=== PATIENT | female | born 1960 | race Caucasian/White ===

== ENCOUNTER 2022-08-25 08:48 | Emergency (ER) | payer BC, OTHER ==
[~2022-08-25] VITALS: Ht 162.6 cm; Wt 54.4 kg
--- NOTE | 2022-08-25 09:17 | ED Respiratory ---
General Chief Complaint: Respiratory Problems Stated Complaint: SOB; TACHY History of Present Illness Date Seen by Provider: Aug 25, 2022 Time Seen by Provider: 09:06 Initial Comments 62-year-old female with PMH of chronic smoker/anxiety/possible COPD officially undiagnosed, is here with complaints of intermittent shortness of breath and wheezing that has been going on for the past 3 weeks and progressively worsening. Patient was given an inhaler by her PCP and reports using it more often than usual. Patient called 911 around 5:45 AM today morning but did not go to the ER. No definite triggers. Patient states that she has associated coughing in the coughing triggers the shortness of breath and chest soreness. Denies fever, chills, diarrhea, abdominal pain, headache, dizziness, palpitations. Allergies and Home Medications Allergies Coded Allergies: No Known Drug Allergies (Unverified , 08/25/22) Patient Home Medication List Home Medication List Reviewed: Yes Review of Systems Review of Systems Constitutional: no symptoms reported EENTM: no symptoms reported Respiratory: cough, short of breath, wheezing Cardiovascular: no symptoms reported Genitourinary: no symptoms reported Musculoskeletal: no symptoms reported Skin: no symptoms reported Psychiatric/Neurological: No Symptoms Reported Hematologic/Lymphatic: No Symptoms Reported Immunological/Allergic: no symptoms reported Past Yrdfkge-Sovaad-Yljfva Hx Patient Social History Tobacco Use?: Yes Tobacco type used: Cigarettes Smoking Status: Current Everyday Smoker Use of E-Cig and/or Vaping dev: No Substance use?: No Alcohol Use?: Yes Alcohol type: Beer Alcohol Frequency: Daily Pt feels they are or have been: No Immunizations Up To Date First/Initial COVID19 Vaccinat: 2020 Second COVID19 Vaccination Mike: 2020 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 oz. kg; BMI Method: General Appearance: WD/WN, no apparent distress HEENT: PERRL/EOMI, normal ENT inspection Neck: full range of motion, supple Respiratory: chest non-tender, no respiratory distress, no accessory muscle use, wheezing (mild intermittent) Cardiovascular: normal peripheral pulses, regular rate, rhythm Gastrointestinal: normal bowel sounds, non tender, soft Neurologic/Psychiatric: no motor/sensory deficits, alert, oriented x 3 Skin: normal color Lymphatic: no adenopathy Progress/Results/Core Measures Suspected Sepsis SIRS Temperature: Pulse: Respiratory Rate: Laboratory Tests 08/25/22 09:08: White Blood Count 13.9H Blood Pressure / Mean: Laboratory Tests 08/25/22 09:08: Creatinine 0.69, INR Comment 1.0, Platelet Count 343, Total Bilirubin 0.3 Results/Orders Lab Results Laboratory Tests Test 08/25/22 09:08 08/25/22 09:30 08/25/22 11:32 Range/Units White Blood Count 13.9 H 4.3-11.0 10^3/uL Red Blood Count 4.54 3.80-5.11 10^6/uL Hemoglobin 15.2 11.5-16.0 g/dL Hematocrit 44 35-52 % Mean Corpuscular Volume 97 80-99 fL Mean Corpuscular Hemoglobin 34 25-34 pg Mean Corpuscular Hemoglobin Concent 35 32-36 g/dL Red Cell Distribution Width 13.0 10.0-14.5 % Platelet Count 343 130-400 10^3/uL Mean Platelet Volume 8.7 L 9.0-12.2 fL Immature Granulocyte % (Auto) 0 % Neutrophils (%) (Auto) 82 H 42-75 % Lymphocytes (%) (Auto) 9 L 12-44 % Monocytes (%) (Auto) 5 0-12 % Eosinophils (%) (Auto) 4 0-10 % Basophils (%) (Auto) 0 0-10 % Neutrophils # (Auto) 11.4 H 1.8-7.8 10^3/uL Lymphocytes # (Auto) 1.3 1.0-4.0 10^3/uL Monocytes # (Auto) 0.7 0.0-1.0 10^3/uL Eosinophils # (Auto) 0.5 H 0.0-0.3 10^3/uL Basophils # (Auto) 0.0 0.0-0.1 10^3/uL Immature Granulocyte # (Auto) 0.1 0.0-0.1 10^3/uL Prothrombin Time 13.2 12.2-14.7 SEC INR Comment 1.0 0.8-1.4 Activated Partial Thromboplast Time 32 24-35 SEC D-Dimer 0.56 H 0.00-0.49 UG/ML Urine Color YELLOW Urine Clarity CLEAR Urine pH 7.0 5-9 Urine Specific [place] 1.015 L 1.016-1.022 Urine Protein NEGATIVE NEGATIVE Urine Glucose (UA) NEGATIVE NEGATIVE Urine Ketones NEGATIVE NEGATIVE Urine Nitrite NEGATIVE NEGATIVE Urine Bilirubin NEGATIVE NEGATIVE Urine Urobilinogen 0.2 < = 1.0 MG/DL Urine Leukocyte Esterase NEGATIVE NEGATIVE Urine RBC (Auto) 1+ H NEGATIVE Urine RBC 2-5 H /HPF Urine WBC 5-10 H /HPF Urine Squamous Epithelial Cells 2-5 /HPF Urine Crystals NONE /LPF Urine Bacteria FEW H /HPF Urine Casts NONE /LPF Urine Mucus NEGATIVE /LPF Urine Culture Indicated YES Sodium Level 134 L 135-145 MMOL/L Potassium Level 4.0 3.6-5.0 MMOL/L Chloride Level 96 L 98-107 MMOL/L Carbon Dioxide Level 27 21-32 MMOL/L Anion Gap 11 5-14 MMOL/L Blood Urea Nitrogen 7 7-18 MG/DL Creatinine 0.69 0.60-1.30 MG/DL Estimat Glomerular Filtration Rate 99 BUN/Creatinine Ratio 10 Glucose Level 125 H 70-105 MG/DL Calcium Level 9.4 8.5-10.1 MG/DL Corrected Calcium 9.3 8.5-10.1 MG/DL Magnesium Level 2.2 1.6-2.4 MG/DL Total Bilirubin 0.3 0.1-1.0 MG/DL Aspartate Amino Transf (AST/SGOT) 14 5-34 U/L Alanine Aminotransferase (ALT/SGPT) 12 0-55 U/L Alkaline Phosphatase 90 40-136 U/L Troponin I < 0.30 < 0.30 <0.30 NG/ML Pro-B-Type Natriuretic Peptide 135.0 H <125.0 PG/ML Total Protein 6.9 6.4-8.2 GM/DL Albumin 4.1 3.2-4.5 GM/DL Urine Opiates Screen NEGATIVE NEGATIVE Urine Oxycodone Screen NEGATIVE NEGATIVE Urine Methadone Screen NEGATIVE NEGATIVE Urine Propoxyphene Screen NEGATIVE NEGATIVE Urine Barbiturates Screen NEGATIVE NEGATIVE Ur Tricyclic Antidepressants Screen NEGATIVE NEGATIVE Urine Phencyclidine Screen NEGATIVE NEGATIVE Urine Amphetamines Screen NEGATIVE NEGATIVE Urine Methamphetamines Screen NEGATIVE NEGATIVE Urine Benzodiazepines Screen NEGATIVE NEGATIVE Urine Cocaine Screen NEGATIVE NEGATIVE Urine Cannabinoids Screen NEGATIVE NEGATIVE Serum Alcohol < 10 <10 MG/DL Influenza Type A (RT-PCR) Not Detected Not Detecte Influenza Type B (RT-PCR) Not Detected Not Detecte SARS-CoV-2 RNA (RT-PCR) Not Detected Not Detecte My Orders Orders - JOVANI SALCEDO MD Chest 1 View Ap/Pa Only (08/25/22 09:17) Alcohol (08/25/22 09:18) Cbc With Automated Diff (08/25/22 09:18) Comprehensive Metabolic Panel (08/25/22 09:18) Fibrin Degradation Products (08/25/22 09:18) Drug Screen Stat (Urine) (08/25/22 09:18) Magnesium (08/25/22 09:18) Protime With Inr (08/25/22 09:18) Partial Thromboplastin Time (08/25/22 09:18) Ua Culture If Indicated (08/25/22 09:18) Probnp Fs (08/25/22 09:18) Troponin I Fs (08/25/22 09:18) Albuterol/Ipra Inhalation Soln (Duoneb I (08/25/22 09:30) Methylprednisolone Sod Succ (Solu-Medrol (08/25/22 09:27) Svn Small Volume Nebulizer (08/25/22 09:27) Covid 19 Inhouse Test (08/25/22 09:28) Influenza A And B By Pcr (08/25/22 09:28) Aspirin Chewable Tablet (Baby Aspirin Ch (08/25/22 09:30) Urine Culture (08/25/22 09:08) Ct Angio Chest W (08/25/22 09:54) Iohexol Injection (Omnipaque 350 Mg/Ml 1 (08/25/22 10:00) Received Contrast (Hold Metformin- Contr (08/25/22 10:00) Ns (Ivpb) (Sodium Chloride 0.9% Ivpb Bag (08/25/22 10:00) Troponin I Fs (08/25/22 11:00) Ekg Tracing (08/25/22 11:00) Medications Given in ED Current Medications Medications Dose Ordered Sig/Bibi Route Start Time Stop Time Status Last Admin Dose Admin Albuterol/ Ipratropium 3 ml ONCE ONCE INH 08/25/22 09:30 08/25/22 09:31 DC 08/25/22 09:34 3 ML Aspirin 324 mg ONCE ONCE PO 08/25/22 09:30 08/25/22 09:31 DC 08/25/22 09:35 324 MG Iohexol 100 ml ONCE ONCE IV 08/25/22 10:00 08/25/22 10:01 DC 08/25/22 10:14 80 ML Sodium Chloride 100 ml ONCE ONCE IV 08/25/22 10:00 08/25/22 10:01 DC 08/25/22 10:14 100 ML Vital Signs/I&O 08/25/22 08/25/22 08:56 08:56 Temp 36.7 Pulse 104 Resp 17 B/P (MAP) 128/79 (95) O2 Delivery Room Air Room Air Capillary Refill : Progress Note : Progress Note 1. COPD EXACERBATION - CXR: COPD like picture - CBC/CMP: unremarkable except for WBC of 13 , but pt is currently taking antibitoics for an UTI ( Nitrofurantoin) - EKG/ Troponin x2: non-icschemic - UA/ UDS unremarkable - ASA 324mg STAT/ Duo Neb/ Solumedrol 125mg iv -Smoking cessation advised. Patient is trying to cut down - Pt has an albuterol inhaler at home, and advised to use it as instructed by her PCP. Prescription for Atrovent given today and a 5-day course of prednisone. -Advised to follow-up with PCP within the next 7 days, and will need pulmonology clinic appointment for lung function testing. -The patient was seen in the ED, and treated appropriately to presentation at a specific point in time. Patient is informed that there is a possibility that disease and illness can evolve and change in acuity rapidly or slowly after patient is discharged from the ER. Precautionary advice given to the patient for immediate return to ER if symptoms worsen or do not resolve, and to seek emergency care sooner rather than later. Pt also advised on the importance of PCP follow up and compliance with management and follow up plan with PCP and/or specialist, as this is part of the management plan. Pt verbally expressed understanding. ECG Initial ECG Impression Date: Aug 25, 2022 Initial ECG Impression Time: 09:04 Initial ECG Rate: 103 Initial ECG Rhythm: S.Tach Initial ECG Intervals: Normal Initial ECG Impression: Nonspecific Changes Initial ECG Comparisson: No Previous ECG Available EKG : EKG Time: 11:32 Rate: 94 Rhythm: Normal Sinus Intervals: Normal ECG Impression: Normal Diagnostic Imaging Diagonstic Imaging: Xray, CT Plain Films/CT/US/NM/MRI: chest Comments [facility], [facility]. [place], [place] NAME: DELANEY MILLER [facility] REC#: [id number] PT STATUS: REG ER : 1960 PHYSICIAN: JOVANI SALCEDO MD ADMIT DATE: 08/25/22/ER FS Draft Date of Exam:08/25/22 CT ANGIO CHEST W PROCEDURE: CT angiography of the chest with contrast. TECHNIQUE: Multiple contiguous axial images were obtained through the chest after uneventful bolus administration of intravenous contrast. 3D reconstructed CTA MIP acquisitions were also performed. Auto Exposure Controls were utilized during the CT exam to meet ALARA standards for radiation dose reduction. INDICATION: Elevated D-dimer and shortness of breath. No prior studies are available for comparison. Evaluation of pulmonary arterial system is without evidence of thromboembolism. No filling defects are seen within central, lobar segmental branches. Thoracic aorta is normal caliber. No dissection is seen. There is no pericardial or pleural fluid. Parenchymal evaluation does show centrilobular emphysematous changes both lungs. There is a linear opacity extending from the right upper lobe to the hilum which could represent some fibrosis or atelectasis. No masses are identified. The upper abdomen is unremarkable. IMPRESSION: 1. No evidence of pulmonary embolism or acute aortic disease. 2. Scarring versus atelectasis in the right upper lobe. Dictated on workstation # [id number] Dict: 08/25/22 1021 Trans: 08/25/22 1033 CVB [id number] Interpreted by: CURT GROVE MD Electronically signed by: [facility]. [place], [place] NAME: DELANEY MILLER [facility] REC#: [id number] PT STATUS: REG ER : 1960 PHYSICIAN: JOVANI SALCEDO MD ADMIT DATE: 08/25/22/ER FS Draft Date of Exam:08/25/22 CHEST 1 VIEW AP/PA ONLY INDICATION: Shortness of breath Frontal chest obtained at 9:24 a.m. Heart and mediastinal silhouette are normal in appearance. There is hyperinflation compatible with COPD. There is no pneumothorax or pleural fluid. There is no definite consolidation. There is an abnormal density in the right suprahilar region, question mass versus scar. Consider chest CT for further evaluation. IMPRESSION: COPD changes. No overt consolidation or pleural fluid. Abnormal density in right suprahilar region, question mass versus scar. Suggest chest CT for further evaluation. Dictated on workstation # [id number] Dict: 08/25/2232 Trans: 08/25/2238 CVB [id number] Interpreted by: EDIL KOCH MD Electronically signed by: Departure Impression Primary Impression: Acute exacerbation of chronic obstructive pulmonary disease (COPD) Disposition: HOME, SELF-CARE Condition: Improved Departure-Patient Inst. Referrals: TIM SALAS MD (PCP) Primary Care Physician Patient Instructions: COPD Exacerbation, Adult ED, COPD Diet, Risk Factors for COPD Add. Discharge Instructions: - Pt has an albuterol inhaler at home, and advised to use it as instructed by h er PCP. Prescription for Atrovent given today and a 5-day course of prednisone to be taken daily. -Advised to follow-up with PCP within the next 7 days, and will need pulmonology clinic appointment for lung function testing. - Smoking cessation advised All discharge instructions reviewed with patient and/or family. Voiced understanding. JOVANI SALCEDO MD Aug 25, 2022 09:17
[2022-08-25] MEDS ORDERED: methylPREDNISolone 125 MG (Solu-MEDROL) VIAL IV STA (09:27)
[2022-08-25 09:30] LABS: BASOPHILS % (AUTO) 0 % (0-10); EOSINOPHILS # (AUTO) 0.5 10^3/uL (0.0-0.3); EOSINOPHILS % (AUTO) 4 % (0-10); HEMATOCRIT 44 % (35-52); HEMOGLOBIN 15.2 g/dL (11.5-16.0); LYMPHOCYTES # (AUTO) 1.3 10^3/uL (1.0-4.0); LYMPHOCYTES % (AUTO) 9 % (12-44); MEAN CORPUSCULAR HEMOGLOBIN 34 pg (25-34); MEAN CORPUSCULAR HGB CONC 35 g/dL (32-36); MEAN CORPUSCULAR VOLUME 97 fL (80-99); MEAN PLATELET VOLUME 8.7 fL (9.0-12.2); MONOCYTES # (AUTO) 0.7 10^3/uL (0.0-1.0); MONOCYTES % (AUTO) 5 % (0-12); NEUTROPHILS # (AUTO) 11.4 10^3/uL (1.8-7.8); NEUTROPHILS % (AUTO) 82 % (42-75); PLATELET COUNT 343 10^3/uL (130-400); WHITE BLOOD COUNT 13.9 10^3/uL (4.3-11.0)
[2022-08-25] MEDS ORDERED: RT-ALBUTEROL/IPRATROPIUM 3 ML (DUONEB) VIAL INH ONE (09:30)
[2022-08-25] MEDS ORDERED: ASPIRIN 81 MG CHEW (CHILDREN'S ASA) PO ONE (09:30)
[2022-08-25 09:32] LABS: BILIRUBIN,URINE NEGATIVE (NEGATIVE); CLARITY,URINE CLEAR; COLOR,URINE YELLOW; GLUCOSE, URINE (UA) NEGATIVE (NEGATIVE); KETONES,URINE NEGATIVE (NEGATIVE); LEUKOCYTE ESTERASE ,URINE NEGATIVE (NEGATIVE); NITRITE,URINE NEGATIVE (NEGATIVE); PROTEIN,URINE NEGATIVE (NEGATIVE)
--- NOTE | 2022-08-25 09:39 | Diagnostic Imaging Report ---
INDICATION: Shortness of breath Frontal chest obtained at 9:24 a.m. Heart and mediastinal silhouette are normal in appearance. There is hyperinflation compatible with COPD. There is no pneumothorax or pleural fluid. There is no definite consolidation. There is an abnormal density in the right suprahilar region, question mass versus scar. Consider chest CT for further evaluation. IMPRESSION: COPD changes. No overt consolidation or pleural fluid. Abnormal density in right suprahilar region, question mass versus scar. Suggest chest CT for further evaluation. Dictated by: Dictated on workstation # [id number]
[2022-08-25 09:40] LABS: PROTHROMBIN TIME PATIENT 13.2 SEC (12.2-14.7)
[2022-08-25 09:41] LABS: ALANINE AMINOTRANSFERASE 12 U/L (0-55); ALBUMIN 4.1 GM/DL (3.2-4.5); ALKALINE PHOSPHATASE 90 U/L (40-136); BILIRUBIN,TOTAL 0.3 MG/DL (0.1-1.0); BUN/CREATININE RATIO 10; CALCIUM 9.4 MG/DL (8.5-10.1); CARBON DIOXIDE 27 MMOL/L (21-32); CHLORIDE 96 MMOL/L (98-107); CREATININE SERUM 0.69 MG/DL (0.60-1.30); GFR ESTIMATED 99; GLUCOSE 125 MG/DL (70-105); SODIUM 134 MMOL/L (135-145); TOTAL PROTEIN 6.9 GM/DL (6.4-8.2)
[2022-08-25 09:42] LABS: BACTERIA,URINE FEW /HPF
[2022-08-25 09:45] LABS: AMPHETAMINE SCREEN, URINE NEGATIVE (NEGATIVE); BARBITURATE SCREEN URINE NEGATIVE (NEGATIVE); BENZODIAZEPINES SCREEN URINE NEGATIVE (NEGATIVE); CANNABINOID SCREEN, URINE NEGATIVE (NEGATIVE); COCAINE SCREEN URINE NEGATIVE (NEGATIVE); METHADONE STAT NEGATIVE (NEGATIVE); OPIATE SCREEN URINE NEGATIVE (NEGATIVE); OXYCODONE STAT NEGATIVE (NEGATIVE); PROPOXYPHENE STAT NEGATIVE (NEGATIVE); TRICYCLIC ANTIDEPRESSANTS SCRE NEGATIVE (NEGATIVE)
[2022-08-25 09:47] LABS: FIBRIN DEGRADATION PRODUCTS 0.56 UG/ML (0.00-0.49)
[2022-08-25 09:49] LABS: MAGNESIUM 2.2 MG/DL (1.6-2.4)
[2022-08-25] MEDS ORDERED: HOLD METFORMIN - RECEIVED CONTRAST 20 ML VIAL IV SCH (10:00)
[2022-08-25] MEDS ORDERED: IOHEXOL 350 MG/ML 100 ML (OMNIPAQUE 350) VIAL IV ONE (10:00)
[2022-08-25] MEDS ORDERED: NS 100 ML (IVPB) BAG IV ONE (10:00)
--- NOTE | 2022-08-25 10:35 | Diagnostic Imaging Report ---
PROCEDURE: CT angiography of the chest with contrast. TECHNIQUE: Multiple contiguous axial images were obtained through the chest after uneventful bolus administration of intravenous contrast. 3D reconstructed CTA MIP acquisitions were also performed. Auto Exposure Controls were utilized during the CT exam to meet ALARA standards for radiation dose reduction. INDICATION: Elevated D-dimer and shortness of breath. No prior studies are available for comparison. Evaluation of pulmonary arterial system is without evidence of thromboembolism. No filling defects are seen within central, lobar segmental branches. Thoracic aorta is normal caliber. No dissection is seen. There is no pericardial or pleural fluid. Parenchymal evaluation does show centrilobular emphysematous changes both lungs. There is a linear opacity extending from the right upper lobe to the hilum which could represent some fibrosis or atelectasis. No masses are identified. The upper abdomen is unremarkable. IMPRESSION: 1. No evidence of pulmonary embolism or acute aortic disease. 2. Scarring versus atelectasis in the right upper lobe. Dictated by: Dictated on workstation # [id number]
[2022-08-25 12:01] VITALS: BP 137/88
[2022-08-25] MEDS ORDERED: PRD50T PO (12:02)
[2022-08-25] MEDS ORDERED: IPR14IN IH (12:02)
== END 2022-08-25 12:01 | disposition home or self-care (01) ==
LOC: ER FS 08:50
DX: J44.1 Chronic obstructive pulmonary disease with (acute) exacerbation (principal); F17.210 Nicotine dependence, cigarettes, uncomplicated; Z20.822 Contact with and (suspected) exposure to COVID-19
CPT/HCPCS: 36415; 71045; 71275; 80053; 80306; 81000; 83735; 83880; 84484; 85025; 85379; 85610; 85730; 87088; 87636; 93005; 99284; G0480; 80320; Q9967